=== PATIENT | female | born 1970 | race Caucasian/White ===

== ENCOUNTER → 2022-08-29 | Outpatient (REF) | payer OTHER ==
[2022-08-29 16:15] LABS: APPEARANCE, URINE MANUAL HAZY (CLEAR); BILIRUBIN, URINE MANUAL NEGATIVE (NEGATIVE); COLOR, URINE MANUAL LT YELLOW (YELLOW); GLUCOSE, URINE (UA) MANUAL 4+(1000 MG/DL) mg/dL (NEGATIVE); KETONE, URINE MANUAL NEGATIVE (NEGATIVE); NITRITE, URINE MANUAL POSITIVE (NEGATIVE); PROTEIN, URINE MANUAL TRACE mg/dL (NEGATIVE); SPECIFIC GRAVITY,URINE MANUAL 1.015 (1.002-1.035); UROBILINOGEN, URINE MANUAL NORMAL (NORMAL)
[2022-08-29 16:16] LABS: BLOOD URINE MANUAL NEGATIVE (NEGATIVE); LEUKOCYTE ESTERASE, URINE MAN TRACE (NEGATIVE)
[2022-08-29 17:00] LABS: BACTERIA, URINE LARGE AMOUNT; HYALINE CAST, URINE NONE SEEN /lpf (0-1); RBC, URINE 0-1 /hpf (0-3); SQUAMOUS EPITHELIAL CELL URINE LARGE AMOUNT /hpf (SMALL AMT); YEAST, URINE SMALL AMOUNT
[2022-08-29 17:02] LABS: WBC, URINE 15-20 /hpf (0-3)
== END ==
LOC: M SMT 13:04
PROVIDERS: ATTEND Physician Assistant
DX: N39.0 Urinary tract infection, site not specified (principal)

== ENCOUNTER 2022-11-22 07:42 | Day surgery (SDC) | payer OTHER ==
[~2022-11-22] VITALS: Ht 154.9 cm; Wt 93.0 kg
[~2022-11-22 07:42] MED LIST: ADME100I SC; ALBU8.5H INH; ATOG60TA PO; ATOR80TA59 PO; BUPR150T12 PO; CEFD300C41 PO; CYCL-707 PO; DULO1CAP6 PO; FENO200C24 PO; FENO67CA12 PO; GLIP10TA6 PO; GLIP5TAB20 PO; GLIP5TAB8 PO; HYDR-643 PO; INSU100V11 SQ; IPRA3SP; LOSA100T5 PO; LYRI150C PO; NITR-67 PO; OMEG10002 PO; ONDA-84 PO; OXYC-403 PO; PANT20TA6 PO; PROBCAP14 PO; RA M500C PO; RA T500C2 PO; RIME75TA PO; SIMV40TA20 PO; STEG15TA PO; SUPETAB44 PO; VITA200016 PO; [UNRECOGNIZED DRUG - REMARK] PO
[2022-11-22] MEDS ORDERED: LR 1,000 ML IV SCH (08:30)
[2022-11-22] MEDS ORDERED: ONDANSETRON 4MG 2ML VIAL As Ordered ONE (08:48)
[2022-11-22] MEDS ORDERED: propofoL 200 MG/20 ML VIAL As Ordered ONE ×2 (08:48→10:01)
[2022-11-22] MEDS ORDERED: KETOROLAC 60MG 2ML VIAL As Ordered ONE (08:48)
[2022-11-22] MEDS ORDERED: LIDOCAINE 2% INJ 100 MG/5 ML SYRINGE As Ordered ONE (08:48)
[2022-11-22] MEDS ORDERED: LIDOCAINE 2% 100MG/5ML SDV (FOR ANES.) As Ordered ONE (08:50)
[2022-11-22] MEDS ORDERED: ceFAZolin SOD 2 GM in IV 1 EA IV ONE (09:05)
[2022-11-22] MEDS ORDERED: fentaNYL 100 MCG/2 ML INJECTION As Ordered ONE (10:17)
[2022-11-22] MEDS ORDERED: MIDAZOLAM INJ 2MG/2ML VIAL As Ordered ONE (10:17)
[2022-11-22] MEDS ORDERED: LABETALOL 100MG/20ML VIAL As Ordered ONE (10:59)
[2022-11-22] MEDS ORDERED: FLOM0.4C39 PO (11:06)
== END 2022-11-22 12:15 | disposition home or self-care (01) ==
LOC: M SDC 07:42
PROVIDERS: ATTEND Urology
DX: N20.0 Calculus of kidney (principal); I10 Essential (primary) hypertension; E78.00 Pure hypercholesterolemia, unspecified; E11.21 Type 2 diabetes mellitus with diabetic nephropathy; K21.9 Gastro-esophageal reflux disease without esophagitis; F32.A Depression, unspecified; F41.9 Anxiety disorder, unspecified; M79.7 Fibromyalgia; J45.909 Unspecified asthma, uncomplicated; F17.210 Nicotine dependence, cigarettes, uncomplicated; Z88.2 Allergy status to sulfonamides; Z91.048 Other nonmedicinal substance allergy status; Z79.899 Other long term (current) drug therapy; Z79.4 Long term (current) use of insulin; Z79.2 Long term (current) use of antibiotics; Z79.84 Long term (current) use of oral hypoglycemic drugs
CPT/HCPCS: 50590; 74018; J1100; J2405

== ENCOUNTER 2022-12-06 08:53 | Day surgery (SDC) | payer OTHER ==
[~2022-12-06] VITALS: Ht 154.9 cm; Wt 95.3 kg
[~2022-12-06 08:53] MED LIST changes: -FENO67CA12 PO; +FENO67CA16 PO; +FLOM0.4C39 PO; +LIDOCAINE 2% 100MG/5ML SDV (FOR ANES.) As Ordered ONE; +MIDAZOLAM INJ 2MG/2ML VIAL As Ordered ONE; +ceFAZolin SOD 2 GM in IV 1 EA IV ONE; +fentaNYL 100 MCG/2 ML INJECTION As Ordered ONE; +propofoL 500 MG/50 ML VIAL As Ordered ONE
[2022-12-06] MEDS ORDERED: INSULIN LISPRO (NovoLOG) PER UNIT SC PRN (10:00)
[2022-12-06] MEDS ORDERED: KETOROLAC 60MG 2ML VIAL As Ordered ONE (11:00)
[2022-12-06] MEDS ORDERED: ONDANSETRON 4MG 2ML VIAL As Ordered ONE (11:00)
== END 2022-12-06 11:51 | disposition home or self-care (01) ==
LOC: M SDC 08:53
PROVIDERS: ATTEND Urology
DX: N20.0 Calculus of kidney (principal); E11.9 Type 2 diabetes mellitus without complications; I10 Essential (primary) hypertension; E78.00 Pure hypercholesterolemia, unspecified; K21.9 Gastro-esophageal reflux disease without esophagitis; M79.7 Fibromyalgia; F41.9 Anxiety disorder, unspecified; F32.A Depression, unspecified; M19.90 Unspecified osteoarthritis, unspecified site; M54.9 Dorsalgia, unspecified; G62.9 Polyneuropathy, unspecified; J45.909 Unspecified asthma, uncomplicated; F17.210 Nicotine dependence, cigarettes, uncomplicated; Z88.2 Allergy status to sulfonamides; Z91.048 Other nonmedicinal substance allergy status; Z79.899 Other long term (current) drug therapy; Z79.2 Long term (current) use of antibiotics; Z79.891 Long term (current) use of opiate analgesic
CPT/HCPCS: 50590; 74018; J0690; J2250; J2405; J3010

== ENCOUNTER → 2023-01-29 | Outpatient (REF) | payer OTHER ==
[~2023-01-29] MED LIST changes: -LIDOCAINE 2% 100MG/5ML SDV (FOR ANES.) As Ordered ONE; -MIDAZOLAM INJ 2MG/2ML VIAL As Ordered ONE; -OXYC-403 PO; +OXYC-673 PO; -ceFAZolin SOD 2 GM in IV 1 EA IV ONE; -fentaNYL 100 MCG/2 ML INJECTION As Ordered ONE; -propofoL 500 MG/50 ML VIAL As Ordered ONE
[2023-01-29 14:38] LABS: APPEARANCE, URINE HAZY (CLEAR); BACTERIA, URINE AUTO 1+ (NEGATIVE); BILIRUBIN, URINE AUTO NEGATIVE (NEGATIVE); BLOOD, URINE BLOOD 1+ (NEGATIVE); COLOR, URINE YELLOW (YELLOW); GLUCOSE, URINE (UA) AUTO 3+ mg/dL (NEGATIVE); KETONE, URINE AUTO NEGATIVE (NEGATIVE); LEUKOCYTE ESTERASE, URINE AUTO 2+ (NEGATIVE); MUCUS, URINE SMALL (NEGATIVE); NITRITE, URINE AUTO NEGATIVE (NEGATIVE); PROTEIN, URINE AUTO 1+ mg/dL (NEGATIVE); RBC, URINE AUTO 4 /HPF (0-3); SPECIFIC GRAVITY URINE AUTO 1.023 (1.002-1.035); SQUAMOUS EPITHELIAL CELL UR AU 11 /HPF (0-6); UROBILINOGEN, URINE AUTO 0.2 mg/dL (0.0-2.0); WBC, URINE AUTO 41 /HPF (0-3)
== END ==
LOC: M SMT 12:55
PROVIDERS: ATTEND Physician Assistant
DX: R30.0 Dysuria (principal)

== ENCOUNTER 2023-02-27 07:29 | Day surgery (SDC) | payer OTHER ==
[~2023-02-27] VITALS: Ht 154.9 cm; Wt 96.2 kg
[~2023-02-27 07:29] MED LIST changes: +ceFAZolin SOD 2 GM in IV 1 EA IV ONE
[2023-02-27] MEDS ORDERED: LR 1,000 ML IV SCH ×2 (08:10→10:00)
[2023-02-27] MEDS ORDERED: INSULIN LISPRO (NovoLOG) PER UNIT SC PRN (08:10)
[2023-02-27] MEDS ORDERED: PHEN-239 (08:20)
[2023-02-27] MEDS ORDERED: ESTR0.1C5 (08:20)
[2023-02-27] MEDS ORDERED: LIDOCAINE 2% 100MG/5ML SDV (FOR ANES.) As Ordered ONE (08:30)
[2023-02-27] MEDS ORDERED: propofoL 200 MG/20 ML VIAL As Ordered ONE (08:30)
[2023-02-27] MEDS ORDERED: MIDAZOLAM INJ 2MG/2ML VIAL As Ordered ONE (08:31)
[2023-02-27] MEDS ORDERED: fentaNYL 100 MCG/2 ML INJECTION As Ordered ONE (08:31)
[2023-02-27] MEDS ORDERED: ISOVUE-300 61% 100ML VIAL As Ordered ONE (09:01)
[2023-02-27] MEDS ORDERED: ONDANSETRON 4MG 2ML VIAL As Ordered ONE (09:11)
[2023-02-27] MEDS ORDERED: PHENYLephrine 500MCG 5ML (100MCG/ML) SYRINGE As Ordered ONE ×3 (09:13→09:40)
[2023-02-27] MEDS ORDERED: oxyCODONE 5MG TAB PO PRN (10:00)
[2023-02-27] MEDS ORDERED: ONDANSETRON 4MG 2ML VIAL IV PRN (10:00)
[2023-02-27] MEDS ORDERED: fentaNYL 100 MCG/2 ML INJECTION IV PRN (10:00)
[2023-02-27] MEDS ORDERED: METOCLOPRAMIDE INJ 10MG/2ML VIAL IV PRN (10:00)
[2023-02-27] MEDS ORDERED: HYDROMORPHONE HCL 0.5 MG/ 0.5 ML SYRINGE IV PRN (10:00)
[2023-02-27 11:09] VITALS: BP 169/90
== END 2023-02-27 11:09 | disposition home or self-care (01) ==
LOC: M SDC 07:29
PROVIDERS: ATTEND Urology
DX: N20.0 Calculus of kidney (principal); I10 Essential (primary) hypertension; E11.42 Type 2 diabetes mellitus with diabetic polyneuropathy; E78.00 Pure hypercholesterolemia, unspecified; K21.9 Gastro-esophageal reflux disease without esophagitis; M19.90 Unspecified osteoarthritis, unspecified site; F41.9 Anxiety disorder, unspecified; F32.A Depression, unspecified; M79.7 Fibromyalgia; G43.909 Migraine, unspecified, not intractable, without status migrainosus; J45.909 Unspecified asthma, uncomplicated; F17.210 Nicotine dependence, cigarettes, uncomplicated; Z88.2 Allergy status to sulfonamides; Z91.048 Other nonmedicinal substance allergy status; Z79.899 Other long term (current) drug therapy; Z79.4 Long term (current) use of insulin
CPT/HCPCS: 52332; 52352; 74420; 82365; C1769; C1894; J1100; J2250; J2370; J2405; J3010; Q9967

== ENCOUNTER → 2023-10-09 | Outpatient (REF) | payer MEDICARE, OTHER ==
[~2023-10-09] MED LIST changes: +CEFD1CAP9 PO; -CEFD300C41 PO; +ESTR0.1C5; +GLIP5TAB17 PO; -GLIP5TAB8 PO; +PHEN-239; -ceFAZolin SOD 2 GM in IV 1 EA IV ONE
[2023-10-09 18:13] LABS: CREATININE, URINE 39.4 MG/DL; MAU/CREAT RATIO 172.5 MCG/MG (0.0-30.0)
== END ==
LOC: M LAB REF 17:09
PROVIDERS: ATTEND Nurse Practitioner Family
DX: E11.40 Type 2 diabetes mellitus with diabetic neuropathy, unspecified (principal)

== ENCOUNTER → 2024-06-25 | Outpatient (CLI) | payer MEDICARE, MEDICAID | LOC: M RAD 16:44 | PROVIDERS: ATTEND Urology | DX: N20.0 Calculus of kidney (principal) ==